=== PATIENT | female | born 1980 | race Caucasian/White ===

== ENCOUNTER 2022-06-05 20:37 | Emergency (ER) | payer MEDICAID ==
[~2022-06-05] VITALS: Ht 172.7 cm; Wt 108.9 kg
--- NOTE | 2022-06-05 20:52 | NUR ---
[id number]. SYNCOPAL EPISODE. ASSISTED FALL TO THE GROUND. FELT FAINT PRIOR EPISODE. REPORTS TAKEN VALIUM 5MG @ 1500. GIVEN NS 500ML IV BY EMS. A/O X4. COMPLAITS OF HEADACHE. DENIES HITTING HEAD. STABLE ON ROOM AIR. NO SOB, BREATHING EVEN AND UNLABORED. DENIES N/V AT THIS TIME.
--- NOTE | 2022-06-05 21:28 | NUR ---
ACCUCHECK BS 134
--- NOTE | 2022-06-05 21:45 | NUR ---
PA AT BEDSIDE
--- NOTE | 2022-06-05 21:50 | NUR ---
URINE COLLECTED AT THIS TIME.
--- NOTE | 2022-06-05 21:57 | NUR ---
DEBBIE (BOYFRIENCharles)
--- NOTE | 2022-06-05 21:58 | NUR ---
[employer]ALS SALES REPRESENTATIVE AT PT'S BEDSIDE
[2022-06-05 22:12] LABS: BASOPHILS % (AUTO) 0.1 % (0.0-2.0); EOSINOPHILS % (AUTO) 0.1 % (0.0-6.0); HEMATOCRIT 38 % (33-45); HEMOGLOBIN 12.4 g/dL (11.5-14.8); LYMPHOCYTES # (AUTO) 0.7 K/uL (0.8-4.8); LYMPHOCYTES % (AUTO) 3.7 % (20.0-44.0); MEAN CORPUSCULAR HGB CONC 33 g/dl (31.0-36.0); MEAN CORPUSCULAR VOLUME 87 fL (82-100); MONOCYTES # (AUTO) 0.7 K/uL (0.1-1.30); MONOCYTES % (AUTO) 3.5 % (2.0-12.0); NEUTROPHILS # (AUTO) 18.4 K/uL (1.8-8.9); NEUTROPHILS % (AUTO) 92.6 % (43.0-81.0); PLATELET COUNT (AUTO) 259 K/uL (150-450); RED BLOOD CELL COUNT(AUTO) 4.36 MIL/uL (4.0-5.2); WHITE BLOOD COUNT (AUTO) 19.9 K/uL (4.3-11.0)
[2022-06-05 22:27] LABS: ALBUMIN 3.4 g/dL (3.4-5.0); BILIRUBIN,DIRECT 0.1 mg/dL (0.0-0.2); BILIRUBIN,TOTAL 0.4 mg/dL (0.2-1.0); CALCIUM, SERUM 8.5 mg/dL (8.5-10.1); POTASSIUM 4.2 mmol/L (3.5-5.1)
[2022-06-05 22:35] LABS: BILIRUBIN,URINE NEGATIVE (NEGATIVE); COLOR,URINE YELLOW (YELLOW); LEUKOCYTE ESTERASE ,URINE NEGATIVE (NEGATIVE); NITRITE, URINE NEGATIVE (NEGATIVE); PH,URINE 5.5 (5.0-8.0); PROTEIN,URINE NEGATIVE (NEGATIVE); UGLUCOSE NEGATIVE (NEGATIVE); UROBILINOGEN,URINE 0.2 EU/dL (0.2)
[2022-06-05 22:43] LABS: WBC,URINE NONE SEEN /HPF (0-3)
[2022-06-05 22:44] LABS: BACTERIA,URINE None seen /HPF (None Seen); SQUAMOUS EPITHELIAL CELL,UR Rare /HPF (None Seen)
--- NOTE | 2022-06-05 22:44 | NUR ---
AUTOMATIC LEHR OPERATOR AT PT'S BEDSIDE
[2022-06-05] MEDS ORDERED: CT SWABBABLE VALVE TRANS SET 1 EA INFUS.SET MC ONE (23:20)
[2022-06-05] MEDS ORDERED: IV NS 0.9% 250 ML IV ONE (23:20)
[2022-06-05] MEDS ORDERED: IOHEXOL-350 100 ML VIAL IV ONE (23:20)
--- NOTE | 2022-06-05 23:25 | NUR ---
COVID AND INFLUENZA SWAB COLLECTED AT THIS TIME
[2022-06-05] MEDS ORDERED: IV NS 0.9% 1,000 ML BAG IV ONE (23:30)
--- NOTE | 2022-06-05 23:44 | NUR ---
IV INSERTION RAC 20G SL
--- NOTE | 2022-06-05 23:47 | NUR ---
PT TAKEN TO CT VIA [facility]
--- NOTE | 2022-06-06 00:05 | NUR ---
PT RETURNED TO ER BED [address]
[2022-06-06] MEDS ORDERED: AMOX-430 PO (00:06)
--- NOTE | 2022-06-06 00:14 | NUR ---
PT AMBULATORY TO RESTROOM WITH STEADY GAIT; ADLS DONE.
--- NOTE | 2022-06-06 02:22 | NUR ---
Patient discharged to home in stable condition. Written and verbal after care instructions given. Patient verbalizes understanding of instruction. IV removed. Catheter intact and site benign. Pressure and 4x4 applied to site. No bleeding noted. Pt ambulatory with a steady gait
[2022-06-06 02:30] VITALS: BP 117/77
== END 2022-06-06 02:31 | disposition home or self-care (01) ==
LOC: ER 20:50
DX: R55 Syncope and collapse (principal); J45.990 Exercise induced bronchospasm; F41.9 Anxiety disorder, unspecified; D50.0 Iron deficiency anemia secondary to blood loss (chronic); F90.9 Attention-deficit hyperactivity disorder, unspecified type; F32.A Depression, unspecified; D72.829 Elevated white blood cell count, unspecified; J01.10 Acute frontal sinusitis, unspecified; Z98.890 Other specified postprocedural states; Z20.822 Contact with and (suspected) exposure to COVID-19
CPT/HCPCS: 99285; 96360; 71275; 71045; 87426; 93005; 87804 ×2; 85025; 80048; 80076; 84703; 81001; 36415; 84484; 82962; J7050; Q9967; C9803; J7030

== ENCOUNTER 2024-12-24 15:50 | Emergency (ER) | payer OTHER, MEDICAID ==
[~2024-12-24] VITALS: Ht 172.7 cm; Wt 99.3 kg
[~2024-12-24 15:50] MED LIST: AMOX-430 PO
[2024-12-24 16:15] VITALS: TEMP 98
[2024-12-24] MEDS ORDERED: dexaMETHasone SOD PHOSPHATE 1 ML ONE (16:35)
[2024-12-24] MEDS ORDERED: HYDROMORPHONE 1 MG/1 ML DISP.SYRIN ONE (16:36)
[2024-12-24] MEDS ORDERED: ONDANSETRON 4 MG TAB.RAPDIS ONE (16:36)
[2024-12-24] MEDS: dexaMETHasone SOD PHOSPHATE 10 MG/ML VIAL IM ONE (16:48)
[2024-12-24] MEDS: HYDROMORPHONE 1 MG/1 ML DISP.SYRIN IM ONE (16:48)
[2024-12-24] MEDS: ONDANSETRON 4 MG TAB.RAPDIS SL ONE (16:49)
[2024-12-24] MEDS ORDERED: HYDROCODONE/APAP 5/325MG TABLET ONE (19:20)
[2024-12-24] MEDS: HYDROCODONE/APAP 5/325MG TABLET PO ONE (19:22)
[2024-12-24] MEDS ORDERED: HYDR-3972 PO (20:34)
[2024-12-24 20:42] VITALS: BP 128/66; O2SAT 98
== END 2024-12-24 20:43 | disposition home or self-care (01) ==
LOC: ER 16:01
DX: M54.50 Low back pain, unspecified (principal); G89.29 Other chronic pain; M47.26 Other spondylosis with radiculopathy, lumbar region; F41.9 Anxiety disorder, unspecified; F32.A Depression, unspecified; Z86.69 Personal history of other diseases of the nervous system and sense organs; Z87.09 Personal history of other diseases of the respiratory system; Z87.39 Personal history of other diseases of the musculoskeletal system and connective tissue; Z88.8 Allergy status to other drugs, medicaments and biological substances
CPT/HCPCS: 99285; 72131; 96372; J1100; Q0162; J1171